=== PATIENT | male | born 1980 | race Caucasian/White ===

== ENCOUNTER 2019-10-10 12:45 | Emergency (ER) | payer OTHER ==
[2019-10-10] MEDS ORDERED: Lidocaine 1% 10 ML MDV INJECT ONE (13:14)
--- NOTE | 2019-10-10 13:14 | EDM.PDOC ---
ED HPI GENERAL MEDICAL PROBLEM - General Chief Complaint: Laceration Stated Complaint: ARM LAC Time Seen by Provider: 10/10/19 13:06 Source of Information: Reports: Patient, RN Notes Reviewed - History of Present Illness INITIAL COMMENTS - FREE TEXT/NARRATIVE: 39 yr old male with lac injury L forearm, knife slipped doing some wiring. Last tetanus within 1 yr. - Related Data Allergies Allergy/AdvReac Type Severity Reaction Status Date / Time No Known Allergies Allergy Verified 10/10/19 13:02 Past Medical History - Past Surgical History HEENT Surgical History: Reports: Naso-Sinus Surgery Musculoskeletal Surgical History: Reports: Other (See Below) Other Musculoskeletal Surgeries/Procedures:: hand surgery Social & Family History - Tobacco Use Smoking Status *Q: Never Smoker Second Hand Smoke Exposure: No - Caffeine Use Caffeine Use: Reports: None - Recreational Drug Use Recreational Drug Use: No ED ROS GENERAL - Review of Systems Review Of Systems: See Below Constitutional: Reports: No Symptoms HEENT: Reports: No Symptoms Respiratory: Reports: No Symptoms Cardiovascular: Reports: No Symptoms GI/Abdominal: Reports: No Symptoms Musculoskeletal: Reports: Other (2 cm lac L medial mid forearm, no active bleeding) Neurological: Reports: No Symptoms ED EXAM, SKIN/RASH Exam: See Below General Appearance: Alert, No Apparent Distress Head: Atraumatic Neck: Supple Respiratory/Chest: No Respiratory Distress Extremities: Other (2 cm lac medial L mid forearm, no active bleeding, no foreign mat. visible) Neurological: No Motor/Sensory Deficits Skin: Warm, Dry, Normal Color ED SKIN PROCEDURES - Laceration/Wound Repair Left Medial Arm Appearance: Linear Distal NVT: Neuro & Vascular Intact Anesthetic Type: Local Local Anesthesia - Lidocaine (Xylocaine): 1% Plain Skin Prep: Saline Closed with: Sutures Lac/Wound length In cm: 2 Suture Size: 3-0 # of Sutures: 6 Suture Type: Nylon Course - Vital Signs Last Recorded V/S: Last Vital Signs Temp 97.2 F 10/10/19 12:59 Pulse 62 10/10/19 12:59 Resp 16 10/10/19 12:59 BP 120/66 10/10/19 12:59 Pulse Ox 99 10/10/19 12:59 - Orders/Labs/Meds Meds: Medications Discontinued Medications Generic Name Dose Route Start Last Admin Trade Name Freq PRN Reason Stop Dose Admin Lidocaine HCl 10 ml 10/10/19 13:14 10/10/19 13:21 Xylocaine 1% INJECT 10/10/19 13:15 10 ml ONETIME ONE Administration Departure - Departure Time of Disposition: 13:19 Disposition: Home, Self-Care 01 Condition: Fair Clinical Impression: Laceration of forearm, left Qualifiers: Encounter type: initial encounter Qualified Code(s): S51.812A - Laceration without foreign body of left forearm, initial encounter - Discharge Information Referrals: Antoine Ojeda Jr, MD [Primary Care Provider] - Forms: ED Department Discharge Additional Instructions: laceration instr., sutures out in about 10 days, keep protected when working, have rechecked any sign of infection. Sepsis Event Note - Evaluation Sepsis Screening Result: No Definite Risk - Focused Exam Vital Signs: Vital Signs Temp Pulse Resp BP Pulse Ox 10/10/19 12:59 97.2 F 62 16 120/66 99 Date Exam was Performed: 10/10/19 Time Exam was Performed: 13:37
== END 2019-10-10 13:46 | disposition home or self-care (01) ==
LOC: JD.ED 12:45
DX: S51.812A Laceration without foreign body of left forearm, initial encounter (principal); W26.0XXA Contact with knife, initial encounter
CPT/HCPCS: 12001; 99282; J2001